=== PATIENT | female | born 1990 | race Caucasian/White ===

== ENCOUNTER → 2016-11-24 | Outpatient (CLI) | payer BC, OTHER ==
[~2016-11-24] MED LIST: YAZ
--- NOTE | 2016-11-24 17:15 | Diagnostic Imaging Report ---
OB ultrasound. INDICATION: survey and check cervical length. FINDINGS: The heart rate is 147 beats per minutes. The placenta is anterior. There is no placenta previa. The cervix is 5.8 cm in length and is closed. The posterior fossa appears unremarkable. The lateral ventricles are normal in size. The stomach and four-chamber view appear normal. The urinary bladder appears unremarkable. The cord insertion appears normal. There is suggestion of two umbilical arteries compatible with three-vessel cord seen around the urinary bladder. The spine upper and mid levels appear unremarkable. The lower spine is not well seen. The growth parameters are: Biparietal diameter: 22 weeks 1 day. Head circumference: 21 weeks 5 days. Abdominal circumference: 22 weeks 4 days. Femur length: 21 weeks 6 days. These average at: 22 weeks 1 day. This compares to a gestational age of 21 weeks and 2 days based on GEORGE provided by referring doctor of 04/04/2017. IMPRESSION: Follow-up study to reevaluate the lower spine not well seen on this exam. Dictated by: Dictated on workstation # [id number]
== END ==
LOC: RAD 11:45
PROVIDERS: ATTEND Obstetrics & Gynecology
DX: Z34.92 Encounter for supervision of normal pregnancy, unspecified, second trimester (principal)
CPT/HCPCS: 76805

== ENCOUNTER → 2017-01-19 | Outpatient (CLI) | payer BC ==
--- NOTE | 2017-01-19 18:43 | Diagnostic Imaging Report ---
EXAMINATION: OB ultrasound. INDICATION: Lower spine was not seen on survey. TECHNIQUE: Multiple real-time grayscale images were obtained over the gravid uterus. COMPARISON: 11/24/16. FINDINGS: heart rate is 146 beats per minute. The placenta is anterior. No placenta previa. The head position is cephalic. The spine is better visualized on the current exam with no underlying abnormality. The YAW is 14.8 cm. Biometrical measurements are as follows: Biparietal 7.9 cm, age 31 weeks 5 days, at the 94th percentile. Head circumference 29.4 cm, age 32 weeks 4 days, at the 95 percentile. Abdominal circumference 27 cm, age 31 weeks 1 days, at 90 percentile. Femur length 5.98 cm, age 31 weeks 1 days, at 84 percentile. Sonographic estimate age: 31 weeks 5 days. This compares to current gestational age of 29 weeks and 2 days based on assigned GEORGE of 04/04/17. Sonographic estimated date of delivery: 03/18/2017. Estimated Weight: 1739 gm (+/- 254 gm). LMP percentile: 96%. heart rate: 146 beats per minute. number: 1 of 1. IMPRESSION: Completed survey. measurements are at the upper limits of normal. Dictated by: Dictated on workstation # [id number]
== END ==
LOC: RAD 13:43
PROVIDERS: ATTEND Obstetrics & Gynecology
DX: Z36 Encounter for antenatal screening of mother (principal); Z3A.31 31 weeks gestation of pregnancy
CPT/HCPCS: 76816

== ENCOUNTER → 2017-02-10 | Outpatient (CLI) | payer BC ==
--- NOTE | 2017-02-10 12:42 | Diagnostic Imaging Report ---
INDICATION: Followup growth and YAW. TECHNIQUE: Multiple Real-time grayscale images were obtained over the gravid uterus. COMPARISON: 01/19/2017. FINDINGS: The heart rate is 147 BPM. The placenta is anterior. No placenta previa. The YAW is 8.4 cm. The position is cephalic. Biometrical measurements are as follows: Biparietal 8.6 cm, age 34 weeks 4 days, at 92nd percentile. Head circumference 32.3 cm, age 36 weeks 4 days, at 97th percentile. Abdominal circumference 30.3 cm, age 34 weeks 2 days, at 92nd percentile. Femur length 6.8 cm, age 35 weeks 1 days, at 94th percentile. Sonographic estimate age: 35 weeks 1 days. This compares to a gestational age of 32 weeks and 3 days based on the assigned GEORGE of 04/04/2017. Sonographic estimated date of delivery: 04/04/17. Estimated Weight: 2501 gm (+/- 365 gm). LMP percentile: 96%. heart rate: 147 beats per minute. number: 1 of 1. IMPRESSION: Live intrauterine . The measurements are relatively large, in the 90th percentiles, similar to 01/19/2017. Dictated by: Dictated on workstation # [id number]
== END ==
LOC: RAD 09:56
PROVIDERS: ATTEND Obstetrics & Gynecology
DX: Z36 Encounter for antenatal screening of mother (principal); Z3A.35 35 weeks gestation of pregnancy
CPT/HCPCS: 76816

== ENCOUNTER → 2017-03-08 | Outpatient (CLI) | payer BC ==
--- NOTE | 2017-03-08 15:57 | Diagnostic Imaging Report ---
INDICATION: Followup growth. TECHNIQUE: Multiple real-time grayscale images were obtained over the gravid uterus. COMPARISON: 11/24/16, 01/19/2017, 02/10/2017. FINDINGS: The previous exam of 02/10/2017 noted a single live fetus of approximately 35 weeks 1 day gestation +/-3 weeks. The estimated weight was in the 96th percentile. On this exam, the fetus is again identified. The fetus is cephalic in presentation with a heart rate of 155 BPM recorded. There were no obvious abnormalities identified. By the previous exam, the estimated gestational age should be 36 weeks 1 day +/-1 week. Today's growth measurements average 39 weeks 1 day. The head circumference and the abdominal circumference are in the greater than 98th percentile range. The placenta is anterior and there is no previa. The amniotic fluid index is 8.8 (normal 8.2 cm). IMPRESSION: 1. There is a single live fetus of approximately 36 weeks 1 day gestation +/-1 week. The EDC remains 04/04/2017. 2. There were no abnormalities identified. 3. The growth parameters suggest that the fetus is at the upper-most limits of normal in size. Biometrical measurements are as follows: Biparietal 9.44 cm, age 38 weeks 4 days. Head circumference 35.10 cm, age 41 weeks 0 days. Abdominal circumference 34.66 cm, age 38 weeks 4 days. Femur length 7.50 cm, age 38 weeks 3 days. Sonographic estimate age: 39 weeks 1 days. Sonographic estimated date of delivery: 03-14-17. Estimated Weight: 3589 gm (+/- 524 gm). LMP percentile: 98%. heart rate: 155 beats per minute. number: 1 of 1. Dictated by: Dictated on workstation # [id number]
== END ==
LOC: RAD 14:48
PROVIDERS: ATTEND Obstetrics & Gynecology
DX: O36.63X0 Maternal care for excessive fetal growth, third trimester, not applicable or unspecified (principal); Z3A.36 36 weeks gestation of pregnancy
CPT/HCPCS: 76816

== ENCOUNTER → 2017-03-22 | Outpatient (CLI) | payer BC ==
[~2017-03-22] MED LIST changes: +ACET1TAB43 PO; +DOCU100C37 PO; +FERR-74 PO; +IBUP-1773 PO
--- NOTE | 2017-03-22 18:14 | Diagnostic Imaging Report ---
INDICATION: Large for gestational age. TECHNIQUE: Multiple real-time grayscale images were obtained over the gravid uterus. COMPARISON: 03/08/2017, 02/10/2017, 01/19/2017, and 11/24/2016. FINDINGS: The recent OB ultrasound exam performed on 03/08/2017 noted a single live fetus at approximately 36 weeks 1 day gestation +/-1 week. The growth parameters did suggest that the fetus was at the upper-most limits of normal in size. On this study, the fetus is again identified. The fetus remains in cephalic presentation. heart motion was noted and a rate of 132 BPM was recorded. There were no abnormalities noted. The growth parameters average 39 weeks 1 day +/-1 week. The estimated weight is in the 70th percentile. The amniotic fluid index is 8.4 as opposed to 8.8 on the prior exam (normal 8 to 22 cm). The placenta is anterior and there is no previa. IMPRESSION: 1. There is a single live fetus at approximately 38 weeks 1 day gestation +/-1 week. The EDC remains April 04, 2017. 2. There were no abnormalities noted. 3. The growth parameters are at the upper limits of normal. 4. The amniotic fluid index is at the low end of normal. Biometrical measurements are as follows: Biparietal 9.4 cm, age 38 weeks 3 days. Head circumference 34.2 cm, age 39 weeks 4 days. Abdominal circumference 35.3 cm, age 39 weeks 2 days. Femur length 7.7 cm, age 39 weeks 1 days. Sonographic estimate age: 39 weeks 1 days. Sonographic estimated date of delivery: 03/28/17. Estimated Weight: 3688 gm (+/- 539 gm). LMP percentile: 85%. heart rate: 132 beats per minute. number: 1 of 1. Dictated by: Dictated on workstation # [id number]
== END ==
LOC: RAD 13:50
PROVIDERS: ATTEND Obstetrics & Gynecology
DX: Z36 Encounter for antenatal screening of mother (principal); Z3A.38 38 weeks gestation of pregnancy
CPT/HCPCS: 76816

== ENCOUNTER 2017-03-25 21:25 | Inpatient (IN) | payer BC ==
[~2017-03-25] VITALS: Ht 167.6 cm; Wt 85.4 kg
[~2017-03-25 21:25] MED LIST changes: -ACET1TAB43 PO; -DOCU100C37 PO; -FERR-74 PO; -IBUP-1773 PO
[2017-03-25] MEDS ORDERED: D5 LR IV SOLUTION 1,000 ML IV ONE (21:48)
[2017-03-25 22:00] VITALS: BP 128/79
[2017-03-25] MEDS ORDERED: D5 LR IV SOLUTION 1,000 ML IV SCH (22:59)
[2017-03-25] MEDS ORDERED: SUFENTA 0.6MCG/ML BUPIVA 0.125 100 ML ONE (23:06)
--- OUTSIDE RECORDS SUMMARY | 2017-03-25 23:10 | XMS REPORT ---
Author Author THERESA GARCIA Organization [employer] Address Unknown Phone Unavailable Care Team Providers Care Relocation Coordinator Name Role Phone THERESA GARCIA CP Unavailable Allergies No Known Allergies Problems No Known Problems Medications No Known Medications Results No Known Results Summary Purpose [employer] Submission
[2017-03-25 23:16] LABS: BASOPHILS % (AUTO) 0 % (0-10); EOSINOPHILS % (AUTO) 0 % (0-10); LYMPHOCYTES # (AUTO) 1.7 X 10^3 (1.0-4.0); LYMPHOCYTES % (AUTO) 16 % (12-44); MEAN CORPUSCULAR HEMOGLOBIN 29 PG (25-34); MEAN CORPUSCULAR HGB CONC 33 G/DL (32-36); MEAN CORPUSCULAR VOLUME 87 FL (80-99); MEAN PLATELET VOLUME 11.6 FL (7.4-10.4); MONOCYTES # (AUTO) 0.8 X 10^3 (0.0-1.0); MONOCYTES % (AUTO) 7 % (0-12); NEUTROPHILS # (AUTO) 8.6 X 10^3 (1.8-7.8); NEUTROPHILS % (AUTO) 77 % (42-75); PLATELET COUNT 222 10^3/uL (130-400); RED BLOOD COUNT 4.15 10^6/uL (4.35-5.85); RED CELL DISTRIBUTION WIDTH 12.7 % (10.0-14.5); WHITE BLOOD COUNT 11.2 10^3/uL (4.3-11.0)
[2017-03-25 23:40] VITALS: BP 130/87
[2017-03-25] MEDS ORDERED: BUPIVACAINE 0.25% 30 ML (SENSORCAINE) VIAL ONE (23:42)
[2017-03-25 23:55] VITALS: BP 127/78
[2017-03-25 23:58] VITALS: BP 120/78
[2017-03-26] VITALS (67 sets, daily range): BP systolic 84–134; BP diastolic 51–82
[2017-03-26] MEDS: EPIDURAL (SUFENTA 0.6MCG/ML BUPIVA 0.125%) 100 ML BAG EPI SCH ×2 (00:05→10:06)
[2017-03-26] MEDS ORDERED: NALOXONE 0.4 MG/ML 1 ML (NARCAN) VIAL IV PRN (00:15)
[2017-03-26] MEDS ORDERED: ONDANSETRON 4 MG/2 ML (SDV) Z0FRAN IV PRN (00:15)
[2017-03-26] MEDS ORDERED: OXYTOCIN/NORMAL SALINE 500 ML IV ONE (05:13)
[2017-03-26] MEDS: OXYTOCIN/NORMAL SALINE 500 ML IV SCH ×4 (05:25→14:16)
[2017-03-26] MEDS ORDERED: CATHETER FLUSH 10 ML SYR IV SCH ×2 (06:00→14:00)
--- NOTE | 2017-03-26 09:54 | History & Physical-OB ---
OB - Chief Complaint & HPI Date/Time Date of Admission: Date of Admission: Mar 25, 2017 at 10:54 pm Time Seen by Provider: 09:00 Chief Complaint/History OB-Reason for Admission/Chief: Onset of Labor Hx : 1 Hx Para: 0 Expected Date of Delivery: Apr 04, 2017 Gestational Age in Weeks: 38 Admission Nurse Assessment Rev: Yes History of Labs A pos Antibody neg RI RPR NR HBsAg NR HIV NR GC neg GBS neg Allergies and Home Medications Allergies Coded Allergies: amoxicillin (Unverified Allergy, Mild, 05/13/09) Home Medications [Karen] , (Reported) OB - History Hx of Present Care: Yes Ultrasounds: Normal mid trimester US Obstetrical Complications: None Medical Complications: None Obstetrical History Hx : 1 Hx Para: 0 Delivery History Adverse Rxn to Tranfusion: No Patient Past Medical History none Social History/Family History HIV/AIDS: No Recent Infectious Disease Expo: No Sexually Transmitted Disease: No Alcohol Use: Denies Use Recreational Drug Use: No Immunizations Hepatitis A: Yes Hepatitis B: Yes OB - Admission Exam Physical Exam Date Seen by Provider: Mar 26, 2017 Time Seen by Provider: 09:15 Vitals: Vital Signs 03/26/17 03/26/17 03/26/17 05:45 06:45 07:00 Temp 98.2 Pulse 67 Resp 18 B/P (MAP) 117/65 Pulse Ox 98 O2 Delivery Room Air HEENT: NCAT Heart: Rhythm Normal Lungs: Clear Abdomen: Gravid Extremities: Normal Reflexes: Normal Cervical Dilatation: 5cm Effacement: 75% Station: -1 Membranes: Intact Heart Rate: 130's Accelerations: Accelerations Present Decelerations: No Decelerations Short Term Variability: Present Portrait Studio Photographer Variability: Average (6-25) Contractions on Admission: < 5 Minutes Apart Intensity: Firm Labs Laboratory Tests Test 03/25/17 23:05 Range/Units White Blood Count 11.2 H 4.3-11.0 10^3/uL Red Blood Count 4.15 L 4.35-5.85 10^6/uL Hemoglobin 12.1 11.5-16.0 G/DL Hematocrit 36 35-52 % Mean Corpuscular Volume 87 80-99 FL Mean Corpuscular Hemoglobin 29 25-34 PG Mean Corpuscular Hemoglobin Concent 33 32-36 G/DL Red Cell Distribution Width 12.7 10.0-14.5 % Platelet Count 222 130-400 10^3/uL Mean Platelet Volume 11.6 H 7.4-10.4 FL Neutrophils (%) (Auto) 77 H 42-75 % Lymphocytes (%) (Auto) 16 12-44 % Monocytes (%) (Auto) 7 0-12 % Eosinophils (%) (Auto) 0 0-10 % Basophils (%) (Auto) 0 0-10 % Neutrophils # (Auto) 8.6 H 1.8-7.8 X 10^3 Lymphocytes # (Auto) 1.7 1.0-4.0 X 10^3 Monocytes # (Auto) 0.8 0.0-1.0 X 10^3 Eosinophils # (Auto) 0.0 0.0-0.3 10^3/uL Basophils # (Auto) 0.0 0.0-0.1 10^3/uL OB - Assessment/Plan/Diagnosis Assessment Assessment: active labor Plan Plan: Expectant Management Discharge Diagnosis Diagnosis: 26 yo @ 39 weeks Active labor GBS neg ROSANGELA HEATON DO Mar 26, 2017 9:54 am
[2017-03-26] MEDS ORDERED: LIDOCAINE/EPI 2% 1:200,00 (XYLOCAINE) 10 ML VIAL ONE (12:22)
[2017-03-26] MEDS ORDERED: MINERAL OIL CONCENTRATE 99.9% 15 ML UDC ONE (12:22)
[2017-03-26] MEDS ORDERED: MEASLES,MUMPS,RUBELLA 1 EA INJ SQ ONE (14:00)
[2017-03-26] MEDS ORDERED: APAP 300 MG/CODEINE 30 MG (TYLENOL #3) TAB PO PRN (14:00)
[2017-03-26] MEDS ORDERED: TETANUS,DIPTH,PERTUSS P/F (BOOSTRIX) 0.5 ML VIAL IM ONE (14:00)
[2017-03-26] MEDS ORDERED: DIBUCAINE (NUPERCAINAL) 1% OINT 30 GM TOP PRN (14:00)
[2017-03-26] MEDS ORDERED: BENZOCAINE/MENTHOL (DERMOPLAST) 56 ML CAN TP PRN (14:00)
[2017-03-26] MEDS ORDERED: WITCH HAZEL(TUCKS) 40 EA JAR TOP PRN (14:00)
--- NOTE | 2017-03-26 14:01 | OB Labor & Delivery Record ---
L&D History Date of Service Date of Service: Mar 26, 2017 History Expected Date of Delivery: Apr 04, 2017 Gestational Age in Weeks: 38 Hx : 1 Hx Para: 0 Complications Events: Routine care Operative Indications (Cesarea: N/A-Vaginal Delivery Intrapartal Events: None L&D Stage1 Stage One Onset of Labor - Date: Mar 26, 2017 Monitors and Tracing Monitor Mode: External Heart Rate: 140 Station: -2 Short Term Variability: Present Presentation: Vertex Vital Signs VS - Last 72 Hours, by Label 03/25/17 03/25/17 03/25/17 03/25/17 22:00 23:40 23:55 23:58 Temp 98.4 Pulse 83 98 86 93 Resp 18 18 18 18 B/P (MAP) 128/79 130/87 127/78 120/78 Pulse Ox 98 98 O2 Delivery Room Air Room Air Room Air Room Air 03/26/17 03/26/17 03/26/17 03/26/17 00:01 00:04 00:07 00:10 Pulse 96 86 87 106 Resp 18 18 18 18 B/P (MAP) 125/78 117/67 116/67 111/58 Pulse Ox 92 100 98 98 O2 Delivery Room Air Room Air Room Air Room Air 03/26/17 03/26/17 03/26/17 03/26/17 00:16 00:19 00:23 00:30 Pulse 114 92 88 88 Resp 18 18 18 18 B/P (MAP) 86/51 105/58 106/59 110/58 Pulse Ox 98 98 99 99 O2 Delivery Room Air Room Air Room Air Room Air 03/26/17 03/26/17 03/26/17 03/26/17 00:33 00:39 00:45 01:00 Pulse 86 92 96 103 Resp 18 18 18 18 B/P (MAP) 107/55 106/57 129/58 103/59 Pulse Ox 99 100 100 100 O2 Delivery Room Air Room Air Room Air Room Air 03/26/17 03/26/17 03/26/17 03/26/17 01:15 01:30 01:45 02:00 Pulse 75 78 101 78 Resp 18 18 18 18 B/P (MAP) 98/56 101/55 100/63 101/55 Pulse Ox 97 97 99 97 O2 Delivery Room Air Room Air Room Air Room Air 03/26/17 03/26/17 03/26/17 03/26/17 02:15 02:30 02:45 03:00 Temp 97.8 Pulse 100 73 69 68 Resp 18 18 18 18 B/P (MAP) 102/65 101/59 94/51 91/53 Pulse Ox 99 99 97 97 O2 Delivery Room Air Room Air Room Air Room Air 03/26/17 03/26/17 03/26/17 03/26/17 03:15 03:30 03:45 04:00 Pulse 79 86 77 76 Resp 18 18 18 18 B/P (MAP) 84/51 105/59 97/56 95/51 Pulse Ox 97 97 97 97 O2 Delivery Room Air Room Air Room Air Room Air 03/26/17 03/26/17 03/26/17 03/26/17 04:15 04:30 04:45 05:00 Pulse 70 71 67 68 Resp 18 18 18 18 B/P (MAP) 86/54 96/52 95/54 91/55 Pulse Ox 97 97 97 97 O2 Delivery Room Air Room Air Room Air Room Air 03/26/17 03/26/17 03/26/17 03/26/17 05:15 05:30 05:45 06:00 Temp 98.2 Pulse 85 96 74 74 Resp 18 18 18 18 B/P (MAP) 87/51 91/57 117/75 116/74 Pulse Ox 97 98 99 98 O2 Delivery Room Air Room Air Room Air Room Air 03/26/17 03/26/17 03/26/17 03/26/17 06:15 06:30 06:45 07:00 Pulse 71 87 67 Resp 18 18 18 18 B/P (MAP) 118/73 110/76 117/65 Pulse Ox 98 98 98 O2 Delivery Room Air Room Air Room Air Room Air Rupture of Membranes Spontaneous Ruture of Membrane: Yes Amniotic Membrane Fluid Desc.: Clear Vaginal Bleeding Description: Normal Show Induction/Anesthesia Epidural Cath Placement - Time: 2358 L&D Stage2 Stage Two Stage II Date: Mar 26, 2017 Monitors and Tracing Monitor Mode: External Heart Rate: 140 Monitor Decelerations: Variable Mobile Home Lot Utility Worker Variability: Minimal (3-5) Short Term Variability: Present Position: Right Occiput Anterior Presentation: Vertex Cord Descript/Complications Cord Vessel Description: 3 Vessels Complications compound presentation over anterior shoulder, hand had to be reduced to allow for delivery of anterior shoulder, once this was done there was no trouble. Delivery Type Infant Delivery Method: Spontaneous Vaginal Anterior Shoulder: Right Episiotomy/Perineal Laceration Laceraction(s)/Extensions: Yes Episiotomy Description: Right Mediolateral Degree (describe repair) 3-0 and 2-0 vicryl suture used to repair RML Condition of Infant Delivery 1 minute Comment: 8 5 minute Comment: 9 Condition of Infant Condition of Infant: Living Exam: No Observed Abnormalities Live female infant weight 8lbs 5 oz, APGARs 8/9 Resuscitation Resuscitation: N/A - Spontaneous Resp L&D Stage3 Stage Three Stage III Date: Mar 26, 2017 Pictocin Pitocin Administration mu/min: 4 Pitocin ml/hr: 4 Pitocin Administration Comment: 30 mu Wide open after delivery of placenta Placenta Delivery Placenta Delivery: Spontaneous Delivery Summary Summary blood loss >1000ml: No Vaginal blood loss >500ml: No 350 mL Attending at delivery: Rosangela Heaton DO Condition of Delivery Examined: Cervix Examined, Uterus Explored Post Hemorrhage: No Condition of Mother stable Condition of (s) stable ROSANGELA HEATON DO Mar 26, 2017 14:01
[2017-03-26] MEDS ORDERED: DOCU100C37 PO (14:03)
[2017-03-26] MEDS ORDERED: ACET1TAB43 PO (14:03)
[2017-03-26] MEDS ORDERED: FERR-74 PO (14:03)
[2017-03-26] MEDS ORDERED: IBUP-1773 PO (14:03)
--- NOTE | 2017-03-26 14:04 | Discharge Inst-Women's Service ---
Discharge Inst-Women's Serv Depart Medication/Instructions New, Converted or Re-Newed RX: RX on Chart Consults/Follow Up Additional Follow Up: Yes Orders/Referrals Dr. Portillo in 6 weeks Activity Activity: Activity as Tolerated Driving Instructions: No Driving for 1 Week NO SMOKING: NO SMOKING Nothing Inside Vagina: No Douching, No [place], No Tampons Diet Discharge Diet: No Restrictions Symptoms to Report to : Bleeding Excessive, Pain Increased, Fever Over 101 Degrees F, Vaginal Bleeding Increase, Questions/Concerns For Any Problems or Questions: Contact Your Physician Skin/Wound Care Bathing Instructions: Shower (x 2 weeks or sitz baths) ROSANGELA HEATON DO Mar 26, 2017 14:04
[2017-03-26] MEDS: IBUPROFEN 600 MG (MOTRIN) TAB PO SCH ×2 (14:51→20:48)
[2017-03-26] MEDS: DOCUSATE SODIUM 100 MG (COLACE) CAP PO SCH (20:48)
[2017-03-27 00:40] VITALS: BP 106/67
[2017-03-27 03:55] VITALS: BP 101/64
[2017-03-27] MEDS: IBUPROFEN 600 MG (MOTRIN) TAB PO SCH ×3 (03:55→16:30)
[2017-03-27 05:58] LABS: BASOPHILS % (AUTO) 0 % (0-10); EOSINOPHILS # (AUTO) 0.1 10^3/uL (0.0-0.3); EOSINOPHILS % (AUTO) 1 % (0-10); LYMPHOCYTES # (AUTO) 2.1 X 10^3 (1.0-4.0); LYMPHOCYTES % (AUTO) 21 % (12-44); MEAN CORPUSCULAR HEMOGLOBIN 29 PG (25-34); MEAN CORPUSCULAR HGB CONC 33 G/DL (32-36); MEAN CORPUSCULAR VOLUME 89 FL (80-99); MEAN PLATELET VOLUME 11.5 FL (7.4-10.4); MONOCYTES % (AUTO) 10 % (0-12); NEUTROPHILS # (AUTO) 6.6 X 10^3 (1.8-7.8); NEUTROPHILS % (AUTO) 68 % (42-75); PLATELET COUNT 164 10^3/uL (130-400); RED BLOOD COUNT 3.63 10^6/uL (4.35-5.85); RED CELL DISTRIBUTION WIDTH 12.9 % (10.0-14.5); WHITE BLOOD COUNT 9.7 10^3/uL (4.3-11.0)
[2017-03-27] MEDS ORDERED: PRENATAL VITAMIN 1 EA TAB PO SCH (07:00)
[2017-03-27 08:40] VITALS: BP 108/68
[2017-03-27] MEDS: DOCUSATE SODIUM 100 MG (COLACE) CAP PO SCH (08:40)
[2017-03-27] MEDS ORDERED: FERROUS SULF 325 MG (IRON) TAB PO SCH (09:00)
[2017-03-27] MEDS ORDERED: DOCUSATE CALCIUM 240 MG (SURFAK) CAP PO SCH (09:00)
--- NOTE | 2017-03-27 09:09 | Anesthesia-Regional Post-Op ---
Regional Patient Condition Mental Status: Alert, Oriented x3 Circulation: Same as Pre-Op Headache: Absent Sensation: Full Recovery Motor Block: Absent Post Op Complications Complications None Follow Up Care/Instructions Patient Instructions None needed. Anesthesia/Patient Condition Patient is doing well, no complaints, stable vital signs, no apparent adverse anesthesia problems. No complications reported per nursing. ESTER MILLARD CRNA Mar 27, 2017 09:08
--- NOTE | 2017-03-27 09:26 | Progress Note-Standard ---
Standard Progress Note Progress Notes/Assess & Plan Date Seen by Provider: Mar 27, 2017 Time Seen by Provider: 09:30 Progress/Assessment & Plan Patient doing well PPD 1 NVD. Reports good pain control. Ambulating and voiding freely. Lochia light Vital Sign - Last 24 Hours 03/26/17 03/26/17 03/26/17 03/26/17 09:30 09:45 10:00 10:29 Temp 98.7 Pulse 84 74 71 74 Resp 18 18 18 18 B/P (MAP) 126/82 130/68 116/75 106/66 Pulse Ox 98 97 97 97 O2 Delivery Room Air Room Air Room Air Room Air 03/26/17 03/26/17 03/26/17 03/26/17 10:45 10:59 11:15 11:30 Pulse 65 82 75 82 Resp 18 18 18 18 B/P (MAP) 111/64 111/67 116/69 123/72 O2 Delivery Room Air Room Air Room Air Room Air 03/26/17 03/26/17 03/26/17 03/26/17 11:45 12:00 12:15 12:30 Temp 98.1 98.4 Pulse 77 77 82 92 Resp 18 18 18 18 B/P (MAP) 96/55 121/76 117/75 119/70 O2 Delivery Room Air Room Air Room Air Room Air 03/26/17 03/26/17 03/26/17 03/26/17 12:45 13:02 13:16 13:30 Pulse 100 100 121 126 Resp 18 18 18 18 B/P (MAP) 119/72 134/60 120/71 128/67 O2 Delivery Room Air Room Air Room Air Room Air 03/26/17 03/26/17 03/26/17 03/26/17 13:43 13:58 14:13 14:27 Temp 98.0 Pulse 96 100 92 97 Resp 18 18 18 18 B/P (MAP) 111/57 119/57 119/58 123/64 O2 Delivery Room Air Room Air Room Air Room Air 03/26/17 03/26/17 03/26/17 03/27/17 14:59 15:29 20:00 00:40 Temp 98.1 97.8 Pulse 94 84 87 78 Resp 18 18 18 18 B/P (MAP) 127/60 119/70 107/61 106/67 Pulse Ox 97 97 O2 Delivery Room Air Room Air Room Air Room Air 03/27/17 03:55 Temp 97.9 Pulse 70 Resp 18 B/P (MAP) 101/64 Pulse Ox 98 O2 Delivery Room Air Uterine fundus firm and palpated below umbilicus Laboratory Tests Test 03/27/17 05:49 Range/Units White Blood Count 9.7 4.3-11.0 10^3/uL Red Blood Count 3.63 L 4.35-5.85 10^6/uL Hemoglobin 10.6 L 11.5-16.0 G/DL Hematocrit 32 L 35-52 % Mean Corpuscular Volume 89 80-99 FL Mean Corpuscular Hemoglobin 29 25-34 PG Mean Corpuscular Hemoglobin Concent 33 32-36 G/DL Red Cell Distribution Width 12.9 10.0-14.5 % Platelet Count 164 130-400 10^3/uL Mean Platelet Volume 11.5 H 7.4-10.4 FL Neutrophils (%) (Auto) 68 42-75 % Lymphocytes (%) (Auto) 21 12-44 % Monocytes (%) (Auto) 10 0-12 % Eosinophils (%) (Auto) 1 0-10 % Basophils (%) (Auto) 0 0-10 % Neutrophils # (Auto) 6.6 1.8-7.8 X 10^3 Lymphocytes # (Auto) 2.1 1.0-4.0 X 10^3 Monocytes # (Auto) 1.0 0.0-1.0 X 10^3 Eosinophils # (Auto) 0.1 0.0-0.3 10^3/uL Basophils # (Auto) 0.0 0.0-0.1 10^3/uL Diagnosis: PPD 1 NVD Acute blood loss anemia P: Continue routine pp care replace iron anticipate dc later today pending release or tomorrow morning. ROSANGELA HEATON DO Mar 27, 2017 9:26 am
[2017-03-27 16:30] VITALS: BP 116/74
== END 2017-03-27 16:50 | disposition home or self-care (01) | DRG 775 ==
LOC: WSo 21:25 → LDRP 21:25 → WSo 22:54 → LDRP 22:54
PROVIDERS: ADMIT Obstetrics & Gynecology; ATTEND Obstetrics & Gynecology
PROC: 10E0XZZ Delivery of Products of Conception, External Approach (ICD-10-PCS; principal; 2017-03-26)
PROC: 0W8NXZZ Division of Female Perineum, External Approach (ICD-10-PCS; 2017-03-26)
DX: O32.6XX0 Maternal care for compound presentation, not applicable or unspecified (principal); O99.03 Anemia complicating the puerperium; D62 Acute posthemorrhagic anemia; Z3A.38 38 weeks gestation of pregnancy; Z37.0 Single live birth
CPT/HCPCS: 36415; 85025; 86850; 86900; 86901

== ENCOUNTER → 2020-04-25 | Outpatient (CLI) | payer OTHER ==
[~2020-04-25] MED LIST changes: +ACET1TAB43 PO; +DOCU100C37 PO; +FERR325T18 PO; +IBUP-1773 PO
== END | disposition home or self-care (01) ==
LOC: LAB 12:18
PROVIDERS: ATTEND Obstetrics & Gynecology
DX: O20.0 Threatened abortion (principal)
CPT/HCPCS: 36415; 84702; 84703

== ENCOUNTER → 2020-10-12 | Outpatient (CLI) | payer OTHER ==
--- NOTE | 2020-10-13 09:43 | Diagnostic Imaging Report ---
INDICATION: anatomy survey TECHNIQUE: Multiple real-time grayscale images were obtained over the gravid uterus. COMPARISON: None FINDINGS: The cervix is closed measuring approximately 6 cm in length. Fetus is in transverse lie. Placenta is posterior and fundal in location and there are no features of previa. The amount of amniotic fluid is normal with an YAW of 13.9 cm. Maternal adnexa are imaged and show no concerning abnormality. anatomy survey was performed and the following structures are visualized and normal: Stomach, spine, three-vessel cord, urinary bladder, umbilical cord insertion, diaphragm, four-chamber heart, right ventricular outflow tract, left ventricular outflow tract, lips/nose, intracranial contents, profile and extremities. The bilateral renal pelves are dilated suggestive of hydronephrosis. Biometrical measurements are as follows: Biparietal 4.78 cm, age 20 weeks 4 days. Head circumference 18.74 cm, age 21 weeks 1 days. Abdominal circumference 15.77 cm, age 21 weeks 0 days. Femur length 3.40 cm, age 20 weeks 5 days. Sonographic estimate age: 20 weeks 6 days. Sonographic estimated date of delivery: 02/23/21. Estimated Weight: 379 gm (+/- 55 gm). LMP percentile: 67%. heart rate: 130 beats per minute. number: 1 of 1. IMPRESSION: 1. Single live intrauterine with a average ultrasound age of 20 weeks and 6 days. 2. anatomy survey is normal with exception of mild bilateral hydronephrosis. Consider followup intrauterine imaging to reassess if this persists. Dictated by: Dictated on workstation # [id number]
== END ==
LOC: RAD 15:00
PROVIDERS: ATTEND Obstetrics & Gynecology
DX: Z34.02 Encounter for supervision of normal first pregnancy, second trimester (principal); Z3A.20 20 weeks gestation of pregnancy
CPT/HCPCS: 76805

== ENCOUNTER 2021-02-17 06:00 | Inpatient (IN) | payer OTHER ==
[2021-02-17] VITALS (29 sets, daily range): BP systolic 0–143; BP diastolic 0–75
[~2021-02-17] VITALS: Ht 170.2 cm; Wt 91.3 kg
[2021-02-17] MEDS ORDERED: fentaNYL 2 mcg/ml BUPIVA 0.125 100 ML ONE (06:30)
[2021-02-17] MEDS ORDERED: D5 LR IV SOLUTION 1,000 ML IV ONE (06:32)
[2021-02-17 06:34] LABS: BASOPHILS % (AUTO) 0 % (0-10); EOSINOPHILS % (AUTO) 0 % (0-10); HEMATOCRIT 38 % (35-52); HEMOGLOBIN 12.5 g/dL (11.5-16.0); LYMPHOCYTES # (AUTO) 1.7 10^3/uL (1.0-4.0); LYMPHOCYTES % (AUTO) 20 % (12-44); MEAN CORPUSCULAR HEMOGLOBIN 29 pg (25-34); MEAN CORPUSCULAR HGB CONC 33 g/dL (32-36); MEAN CORPUSCULAR VOLUME 88 fL (80-99); MEAN PLATELET VOLUME 11.9 fL (9.0-12.2); MONOCYTES # (AUTO) 0.6 10^3/uL (0.0-1.0); MONOCYTES % (AUTO) 7 % (0-12); NEUTROPHILS # (AUTO) 5.8 10^3/uL (1.8-7.8); NEUTROPHILS % (AUTO) 72 % (42-75); PLATELET COUNT 181 10^3/uL (130-400); WHITE BLOOD COUNT 8.1 10^3/uL (4.3-11.0)
[2021-02-17] MEDS: D5 LR IV SOLUTION 1,000 ML IV SCH ×2 (06:40→23:46)
[2021-02-17] MEDS ORDERED: fentaNYL INJ 100 MCG/2 ML AMP ONE (06:51)
[2021-02-17] MEDS ORDERED: BUPIVACAINE 0.25% 30 ML (SENSORCAINE) VIAL ONE (06:51)
[2021-02-17] MEDS ORDERED: NALOXONE 0.4 MG/ML 1 ML (NARCAN) VIAL IV PRN ×2 (07:45)
[2021-02-17] MEDS ORDERED: EPIDURAL (fentaNYL 2 MCG/ML BUPIVA 0.125%)100 ML BAG EPI PRN (07:45)
[2021-02-17] MEDS ORDERED: LACTATED RINGERS 1,000 ML IV SCH (07:45)
[2021-02-17] MEDS ORDERED: diphenhydrAMINE 50 MG/ML INJ (BENADRYL) IV PRN (07:45)
[2021-02-17] MEDS ORDERED: ONDANSETRON 4 MG/2 ML (SDV) Z0FRAN IV PRN (07:45)
[2021-02-17] MEDS ORDERED: METOCLOPRAMIDE INJ 10 MG/2 ML (REGLAN) IV PRN (07:45)
[2021-02-17] MEDS ORDERED: fentaNYL 2 mcg/ml BUPIVA 0.125 100 ML EPI PRN (08:00)
[2021-02-17] MEDS ORDERED: LIDOCAINE/EPI 2% 1:200,00 (XYLOCAINE) 20 ML VIAL ONE (08:09)
[2021-02-17] MEDS ORDERED: OXYTOCIN PRE-MIX DRIP 500 ML IV ONE ×2 (08:10→09:41)
--- NOTE | 2021-02-17 08:23 | History & Physical-OB ---
OB - Chief Complaint & HPI Date/Time Date of Admission: Date of Admission: Feb 17, 2021 at 06:29 Date seen by a Provider: Feb 17, 2021 Time Seen by a Provider: 08:00 Chief Complaint/History OB-Reason for Admission/Chief: Onset of Labor Hx : 2 Hx Para: 1 Expected Date of Delivery: Feb 26, 2021 Gestational Age in Weeks: 38 Gestational Age in Days: 5 Admission Nurse Assessment Rev: Yes History of Labs A pos Antibody neg GBS neg Allergies and Home Medications Allergies Coded Allergies: amoxicillin (Unverified Allergy, Mild, 05/13/09) Home Medications Acetaminophen with Codeine 1 Each Tablet, 1-2 TAB PO Q4H PRN for PAIN-MODERATE Prescribed by: ROSANGELA HEATON on 03/26/171402 Docusate Sodium 100 Mg Capsule, 100 MG PO BID Prescribed by: ROSANGELA HEATON on 03/26/171402 Ferrous Sulfate 325 Mg Tablet, 325 MG PO DAILY Prescribed by: ROSANGELA HEATON on 03/26/171402 Ibuprofen 600 Mg Tablet, 600 MG PO Q6H Prescribed by: ROSANGELA HEATON on 03/26/171402 Patient Home Medication List Home Medication List Reviewed: Yes OB - History Hx of Present Care: Yes Ultrasounds: Abnormal US findings (bilateral renal pyelectasis, followed with MFM and stable, peds to follow up ) Obstetrical Complications: None Medical Complications: None Obstetrical History Hx : 2 Hx Para: 1 Delivery History Adverse Rxn to Tranfusion: No Patient Past Medical History none Social History/Family History Alcohol Use: Denies Use Recreational Drug Use: No 2nd Hand Smoke Exposure: No Immunizations Hepatitis A: Yes Hepatitis B: Yes OB - Admission Exam Physical Exam Vitals: Vital Signs 02/17/21 02/17/21 02/17/21 02/17/21 06:14 06:45 07:00 07:08 Temp 36.2 Pulse 94 Resp 18 B/P (MAP) 120/73 (89) Pulse Ox 98 O2 Delivery Room Air HEENT: NCAT Heart: Rhythm Normal Lungs: Clear Abdomen: Gravid Extremities: Normal Reflexes: Normal Cervical Dilatation: 7cm Effacement: 75% Station: -1 Membranes: Intact Heart Rate: 130's Accelerations: Accelerations Present Decelerations: No Decelerations Short Term Variability: Present Care Home Variability: Average (6-25) Contractions on Admission: < 5 Minutes Apart Intensity: Firm Labs Laboratory Tests Test 02/17/21 06:25 Range/Units White Blood Count 8.1 4.3-11.0 10^3/uL Red Blood Count 4.26 3.80-5.11 10^6/uL Hemoglobin 12.5 11.5-16.0 g/dL Hematocrit 38 35-52 % Mean Corpuscular Volume 88 80-99 fL Mean Corpuscular Hemoglobin 29 25-34 pg Mean Corpuscular Hemoglobin Concent 33 32-36 g/dL Red Cell Distribution Width 13.2 10.0-14.5 % Platelet Count 181 130-400 10^3/uL Mean Platelet Volume 11.9 9.0-12.2 fL Immature Granulocyte % (Auto) 0 % Neutrophils (%) (Auto) 72 42-75 % Lymphocytes (%) (Auto) 20 12-44 % Monocytes (%) (Auto) 7 0-12 % Eosinophils (%) (Auto) 0 0-10 % Basophils (%) (Auto) 0 0-10 % Neutrophils # (Auto) 5.8 1.8-7.8 10^3/uL Lymphocytes # (Auto) 1.7 1.0-4.0 10^3/uL Monocytes # (Auto) 0.6 0.0-1.0 10^3/uL Eosinophils # (Auto) 0.0 0.0-0.3 10^3/uL Basophils # (Auto) 0.0 0.0-0.1 10^3/uL Immature Granulocyte # (Auto) 0.0 0.0-0.1 10^3/uL OB - Assessment/Plan/Diagnosis Assessment Assessment: active labor Admission Dx 30 y o @ 38 weeks Active labor GBS neg renal pyelectasis- follow up . Admission Status: Inpatient Order (span 2 midnights) Reason for Inpatient Admission: Active labor Plan Plan: Expectant Management ROSANGELA HEATON DO Feb 17, 2021 08:23
[2021-02-17] MEDS: OXYTOCIN PRE-MIX DRIP 500 ML IV SCH ×2 (09:06→09:44)
--- NOTE | 2021-02-17 10:07 | OB Labor & Delivery Record ---
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 Variability: Moderate (11-25) Short Term Variability: Present Presentation: Vertex Vital Signs VS - Last 72 Hours, by Label 02/17/21 02/17/21 02/17/21 02/17/21 06:14 06:45 07:00 07:05 Temp 37.0 36.2 Pulse 0 91 85 85 Resp 18 18 18 B/P (MAP) 107/61 (76) 125/75 (92) 120/69 (86) Pulse Ox 98 98 O2 Delivery Room Air 02/17/21 07:08 Pulse 94 B/P (MAP) 120/73 (89) Pulse Ox 98 Rupture of Membranes Spontaneous Ruture of Membrane: No Amniotic Membrane Rupture Time: 07:55 Amniotic Membrane Fluid Desc.: Clear Vaginal Bleeding Description: Normal Show Induction/Anesthesia Epidural Cath Placement - Time: 0703 Progress/Notes Patient presented in active labor 7 cm dialated. We were able to get an epidural in time, but shorlty after placement she was rechecked and found to be complete and +1 station. Her labor was nor augmented other than AROM performed when she was complete. L&D Stage2 Stage Two Stage II Date: Feb 17, 2021 Monitors and Tracing Monitor Mode: External Heart Rate: 120 Monitor Accelerations: Uniform Monitor Decelerations: Variable Short Term Variability: Present Position: Right Occiput Anterior Presentation: Vertex Cord Descript/Complications Cord Vessel Description: 3 Vessels Delivery Type Infant Delivery Method: Spontaneous Vaginal Anterior Shoulder: Right Episiotomy/Perineal Laceration Laceraction(s)/Extensions: Yes Episiotomy Description: Perineal Extension/lac, 2nd degree Degree (describe repair) 2nd degree perineal laceration repaired using 3-0 rapide suture in usual fashion. Condition of Infant Delivery 1 minute Comment: 9 5 minute Comment: 9 Notes Live male infant weight 9lbs 6 oz Condition of Condition of : Living Exam: No Observed Abnormalities Resuscitation Resuscitation: N/A - Spontaneous Resp L&D Stage3 Stage Three Stage III Date: Feb 17, 2021 Pictocin Pitocin Administration Comment: 30 mu wide open after delivery of placenta Placenta Delivery Placenta Delivery: Spontaneous Delivery Summary Summary Estimated blood loss (mL): 300 Attending at delivery: Rosangela Heaton DO Condition of Delivery Examined: Cervix Examined, Uterus Explored Post Hemorrhage: No Condition of Mother stable Condition of Infant (s) stable ROSANGELA HEATON DO Feb 17, 2021 10:07 am
[2021-02-17] MEDS ORDERED: BENZOCAINE/MENTHOL (DERMOPLAST) 56 ML CAN TP PRN (10:15)
[2021-02-17] MEDS ORDERED: DIBUCAINE 1% OINTMENT 30 GM TUBE TOP PRN (10:15)
[2021-02-17] MEDS ORDERED: WITCH HAZEL(TUCKS) 40 EA JAR TOP PRN (10:15)
[2021-02-17] MEDS ORDERED: TETANUS,DIPTH,PERTUSS P/F (BOOSTRIX) 0.5 ML VIAL IM ONE (10:15)
[2021-02-17] MEDS ORDERED: HYDROcodone/APAP 5 MG/325 MG (LORTAB) TAB PO PRN (10:15)
[2021-02-17] MEDS ORDERED: MEASLES,MUMPS,RUBELLA 1 EA INJ SQ ONE (10:15)
[2021-02-17] MEDS: IBUPROFEN 600 MG (MOTRIN) TAB PO SCH ×3 (10:53→23:53)
[2021-02-17] MEDS ORDERED: CATHETER FLUSH 10 ML SYR IV SCH ×2 (14:00)
[2021-02-17] MEDS: DOCUSATE SODIUM 100 MG (COLACE) CAP PO SCH (20:35)
[2021-02-18 03:35] VITALS: BP 101/60
[2021-02-18 05:06] LABS: BASOPHILS % (AUTO) 0 % (0-10); EOSINOPHILS # (AUTO) 0.1 10^3/uL (0.0-0.3); EOSINOPHILS % (AUTO) 1 % (0-10); HEMATOCRIT 35 % (35-52); HEMOGLOBIN 11.5 g/dL (11.5-16.0); LYMPHOCYTES # (AUTO) 1.8 10^3/uL (1.0-4.0); LYMPHOCYTES % (AUTO) 20 % (12-44); MEAN CORPUSCULAR HEMOGLOBIN 29 pg (25-34); MEAN CORPUSCULAR HGB CONC 33 g/dL (32-36); MEAN CORPUSCULAR VOLUME 88 fL (80-99); MEAN PLATELET VOLUME 11.8 fL (9.0-12.2); MONOCYTES # (AUTO) 0.6 10^3/uL (0.0-1.0); MONOCYTES % (AUTO) 7 % (0-12); NEUTROPHILS # (AUTO) 6.5 10^3/uL (1.8-7.8); NEUTROPHILS % (AUTO) 72 % (42-75); PLATELET COUNT 168 10^3/uL (130-400)
[2021-02-18] MEDS: IBUPROFEN 600 MG (MOTRIN) TAB PO SCH (06:58)
[2021-02-18] MEDS ORDERED: PRENATAL VITAMIN 1 EA TAB PO SCH (07:00)
[2021-02-18] MEDS ORDERED: FERROUS SULF 325 MG (IRON) TAB PO SCH (07:00)
[2021-02-18] MEDS ORDERED: COVID-19 VACC,MRNA(MODERNA)/PF 100 MCG/0.5 ML VIAL IM ONE (08:00)
--- NOTE | 2021-02-18 08:02 | Discharge Inst-Women's Service ---
Discharge Inst-Women's Serv Depart Medication/Instructions New, Converted or Re-Newed RX: RX on Chart Problems Reviewed?: Yes Consults/Follow Up Additional Follow Up: Yes Activity Activity: Activity as Tolerated Driving Instructions: No Driving for 1 Week NO SMOKING: NO SMOKING Nothing Inside Vagina: No Douching, No Tetherow, No Tampons Diet Discharge Diet: No Restrictions Symptoms to Report to : Bleeding Excessive, Pain Increased, Fever Over 101 Degrees F, Vaginal Bleeding Increase, Questions/Concerns For Any Problems or Questions: Contact Your Physician ROSANGELA HEATON DO Feb 18, 2021 08:02
[2021-02-18] MEDS ORDERED: DCS100C PO (08:08)
[2021-02-18] MEDS ORDERED: BENZ78AE5 TP (08:08)
[2021-02-18] MEDS ORDERED: ACHD5005 PO (08:08)
[2021-02-18] MEDS ORDERED: DIBU30OI TOP (08:08)
[2021-02-18] MEDS ORDERED: IBUP-844 PO (08:08)
[2021-02-18] MEDS ORDERED: FERR325T24 PO (08:08)
--- NOTE | 2021-02-18 08:10 | Postpartum Progress Note ---
Note Note Day # 1 Subjective: Patient is without complaints. Ambulating, voiding. Tolerating a regular diet without nausea or vomiting. Normal lochia. Pain is well controlled with oral pain medications. Objective: Physical Exam: General - Alert and oriented, no apparent distress Abdomen - Soft, appropriately tender to palpation, non-distended, fundus firm at umbilicus Extremities - no edema, negative Martha's bilaterally Assessment: PPD 1 NVD Plan: Routine care. Encourage breast feeding. Encourage ambulation. Ferrous sulfate supplementation. Plan for discharge today Vitals - Labs Vital Signs - I&O Vital Signs Date Time Temp Pulse Resp B/P (MAP) Pulse Ox O2 Delivery O2 Flow Rate FiO2 02/18/21 03:35 36.6 81 18 101/60 (74) 98 Room Air 02/17/21 23:53 36.3 75 18 113/61 (78) 98 Room Air 02/17/21 20:35 36.4 74 18 113/58 (76) 99 Room Air 02/17/21 15:00 36.8 76 18 106/56 (73) 97 Room Air 02/17/21 10:50 82 105/59 (74) 02/17/21 10:45 76 109/58 (75) 02/17/21 10:30 75 114/62 (79) 02/17/21 10:15 36.6 82 121/71 (88) 02/17/21 10:00 68 118/67 (84) 02/17/21 09:45 74 106/57 (73) 02/17/21 09:30 82 116/59 (78) 02/17/21 09:15 101 109/59 (76) 02/17/21 09:00 90 114/61 (78) 02/17/21 08:45 84 143/67 (92) 02/17/21 08:30 75 117/67 (84) 02/17/21 08:15 82 112/69 (83) I & O 02/18/21 07:00 Intake Total 1300 ml Balance 1300 ml Labs Laboratory Tests 02/18/21 04:58: White Blood Count 9.0, Red Blood Count 3.94, Hemoglobin 11.5, Hematocrit 35, Mean Corpuscular Volume 88, Mean Corpuscular Hemoglobin 29, Mean Corpuscular Hemoglobin Concent 33, Red Cell Distribution Width 13.3, Platelet Count 168, Mean Platelet Volume 11.8, Immature Granulocyte % (Auto) 0, Neutrophils (%) (Auto) 72, Lymphocytes (%) (Auto) 20, Monocytes (%) (Auto) 7, Eosinophils (%) (Auto) 1, Basophils (%) (Auto) 0, Neutrophils # (Auto) 6.5, Lymphocytes # (Auto) 1.8, Monocytes # (Auto) 0.6, Eosinophils # (Auto) 0.1, Basophils # (Auto) 0.0, Immature Granulocyte # (Auto) 0.0 ROSANGELA HEATON DO Feb 18, 2021 08:10
[2021-02-18 10:00] VITALS: BP 124/72
[2021-02-18] MEDS: DOCUSATE SODIUM 100 MG (COLACE) CAP PO SCH (10:10)
[2021-02-18] MEDS ORDERED: ACETAMINOPHEN 500 MG TAB (TYLENOL) ONE (10:56)
--- NOTE | 2021-02-18 11:05 | Anesthesia-Regional Post-Op ---
Regional Patient Condition Mental Status: Alert, Oriented x3 Circulation: Same as Pre-Op Headache: Absent Sensation: Full Recovery Motor Block: Absent Post Op Complications Complications None Follow Up Care/Instructions Patient Instructions None needed. Anesthesia/Patient Condition Patient is doing well, no complaints, stable vital signs, no apparent adverse anesthesia problems. No complications reported per nursing. ESTER MILLARD CRNA Feb 18, 2021 11:05
[2021-02-19] MEDS ORDERED: ACETAMINOPHEN 500 MG TAB (TYLENOL) PO ONE (10:30)
== END 2021-02-18 11:45 | disposition home or self-care (01) | DRG 807 ==
LOC: WSo 06:00 → LDRP 06:04 → WSo 06:28 → LDRP 06:29
PROVIDERS: ADMIT Obstetrics & Gynecology; ATTEND Obstetrics & Gynecology
PROC: 10E0XZZ Delivery of Products of Conception, External Approach (ICD-10-PCS; principal; 2021-02-17)
PROC: 0KQM0ZZ Repair Perineum Muscle, Open Approach (ICD-10-PCS; 2021-02-17)
DX: O70.1 Second degree perineal laceration during delivery (principal); Z37.0 Single live birth; Z3A.38 38 weeks gestation of pregnancy; Z88.1 Allergy status to other antibiotic agents
CPT/HCPCS: 36415; 85025; 86850; 86900; 86901; 91301

== ENCOUNTER 2021-03-02 08:34 | Emergency (ER) | payer OTHER ==
[~2021-03-02] VITALS: Ht 170.1 cm; Wt 78.4 kg
[~2021-03-02 08:34] MED LIST changes: +ACHD5005 PO; +BENZ78AE5 TP; +DCS100C PO; +DIBU30OI TOP; +FERR325T24 PO; +IBUP-844 PO
[2021-03-02 09:07] LABS: BILIRUBIN,URINE NEGATIVE (NEGATIVE); CLARITY,URINE CLEAR; COLOR,URINE YELLOW; GLUCOSE, URINE (UA) NEGATIVE (NEGATIVE); KETONES,URINE NEGATIVE (NEGATIVE); LEUKOCYTE ESTERASE ,URINE 2+ (NEGATIVE); NITRITE,URINE NEGATIVE (NEGATIVE); PH,URINE 6.5 (5-9); PROTEIN,URINE NEGATIVE (NEGATIVE)
[2021-03-02 09:45] LABS: BACTERIA,URINE FEW /HPF
[2021-03-02 10:09] LABS: BASOPHILS % (AUTO) 0 % (0-10); EOSINOPHILS # (AUTO) 0.1 10^3/uL (0.0-0.3); EOSINOPHILS % (AUTO) 1 % (0-10); HEMATOCRIT 51 % (35-52); HEMOGLOBIN 16.6 g/dL (11.5-16.0); LYMPHOCYTES # (AUTO) 3.2 10^3/uL (1.0-4.0); LYMPHOCYTES % (AUTO) 50 % (12-44); MEAN CORPUSCULAR HEMOGLOBIN 29 pg (25-34); MEAN CORPUSCULAR HGB CONC 32 g/dL (32-36); MEAN CORPUSCULAR VOLUME 90 fL (80-99); MEAN PLATELET VOLUME 10.8 fL (9.0-12.2); MONOCYTES # (AUTO) 0.5 10^3/uL (0.0-1.0); MONOCYTES % (AUTO) 7 % (0-12); NEUTROPHILS # (AUTO) 2.7 10^3/uL (1.8-7.8); NEUTROPHILS % (AUTO) 42 % (42-75); PLATELET COUNT 369 10^3/uL (130-400); WHITE BLOOD COUNT 6.4 10^3/uL (4.3-11.0)
--- NOTE | 2021-03-02 10:14 | ED Abdominal Pain ---
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 Pt reports pain radiates to the back. Pt reports vaginal delivery without complications two weeks ago. Source of Information: Patient Exam Limitations: No Limitations History of Present Illness Date Seen by Provider: Mar 02, 2021 Time Seen by Provider: 09:02 Initial Comments This 30-year-old young lady presents to the emergency room about 2 weeks with left lower quadrant pain. She was breast-feeding when she suddenly experienced a sharp intense pain in the left lower quadrant. She had a brief episode of nausea, dizziness, and sweating at the onset. No symptoms dissipated quickly but the pain persisted. She rated the pain as 7 or 8 out of 10. She took ibuprofen (does not know dose) and pain gradually subsided. She denies any notable pain at this time. She is still experiencing some lochia but denies any other urologic or vaginal symptoms. No history of kidney stones. No noted hematuria. No constipation or diarrhea. Allergies and Home Medications Allergies Coded Allergies: amoxicillin (Unverified Allergy, Mild, 05/13/09) Home Medications Benzocaine/Menthol 78 Gm Aerosol, 56 EA TP UD PRN for PAIN- SEE INSTRUCTIONS Prescribed by: ROSANGELA HEATON on 02/18/21 08 Dibucaine 30 Gm Oint, 0 GM TOP UD PRN for PAIN- SEE INSTRUCTIONS Prescribed by: ROSANGELA HEATON on 02/18/21 0808 Docusate Sodium 100 Mg Capsule, 100 MG PO BID PRN for CONSTIPATION-1ST LINE Prescribed by: ROSANGELA HEATON on 02/18/21 0808 Ferrous Sulfate 325 Mg Tablet, 325 MG PO DAILY@0700 Prescribed by: ROSANGELA HEATON on 02/18/21 0808 Hydrocodone Bit/Acetaminophen 1 Tab Tab, 1 EA PO Q4H PRN for PAIN-MODERATE (5-7) Prescribed by: ROSANGELA HEATON on 02/18/21 0809 Ibuprofen 600 Mg Tablet, 600 MG PO Q6HR Prescribed by: ROSANGELA HEATON on 02/18/21 0808 Patient Home Medication List Home Medication List Reviewed: Yes Review of Systems Review of Systems Constitutional: no symptoms reported EENTM: No Symptoms Reported Respiratory: No Symptoms Reported Cardiovascular: No Symptoms Reported Gastrointestinal: See HPI Genitourinary: See HPI Musculoskeletal: no symptoms reported Skin: no symptoms reported Psychiatric/Neurological: No Symptoms Reported Endocrine: No Symptoms Reported Hematologic/Lymphatic: No Symptoms Reported Past Liisndp-Ynjlhn-Wanvrm Hx Patient Social History Tobacco Use?: No Substance use?: No Alcohol Use?: No Pt feels they are or have been: No Immunizations Up To Date PED Vaccines UTD: Yes First/Initial COVID19 Vaccinat: 02/17/21 COVID19 Vaccine Line Patroller: Trendabl Seasonal Allergies Seasonal Allergies: No Past Medical History Surgeries: Yes (cyst removal from hand ) Tonsillectomy Respiratory: No Cardiac: No Neurological: No Female Reproductive Disorders: Denies Sexually Transmitted Disease: No HIV/AIDS: No Genitourinary: No Gastrointestinal: No Musculoskeletal: No Endocrine: No Tonsilitis Cancer: No Psychosocial: No Integumentary: No Blood Disorders: No Adverse Reaction/Blood Tranf: No Family Medical History Patient reports no known family medical history. Physical Exam Vital Signs Vital Signs - First Documented 03/02/21 08:40 Temp 36.1 Pulse 73 Resp 18 B/P (MAP) 127/94 (105) Pulse Ox 99 O2 Delivery Room Air Capillary Refill : Less Than 3 Seconds Height/Weight/BMI Height: 5'6.00" Weight: 188lbs. 6.0oz. 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, no motor/sensory deficits, alert, normal mood/affect, oriented x 3 Skin: normal color, warm/dry Progress/Results/Core Measures Results/Orders Lab Results Laboratory Tests Test 03/02/21 08:45 03/02/21 08:50 Range/Units Urine Color YELLOW Urine Clarity CLEAR Urine pH 6.5 5-9 Urine Specific [place] 1.015 L 1.016-1.022 Urine Protein NEGATIVE NEGATIVE Urine Glucose (UA) NEGATIVE NEGATIVE Urine Ketones NEGATIVE NEGATIVE Urine Nitrite NEGATIVE NEGATIVE Urine Bilirubin NEGATIVE NEGATIVE Urine Urobilinogen 0.2 < = 1.0 MG/DL Urine Leukocyte Esterase 2+ H NEGATIVE Urine RBC (Auto) 3+ H NEGATIVE Urine RBC 10-25 H /HPF Urine WBC 5-10 H /HPF Urine Squamous Epithelial Cells 10-25 H /HPF Urine Crystals NONE /LPF Urine Bacteria FEW H /HPF Urine Casts NONE /LPF Urine Mucus SMALL H /LPF Urine Culture Indicated YES White Blood Count 6.4 4.3-11.0 10^3/uL Red Blood Count 5.73 H 3.80-5.11 10^6/uL Hemoglobin 16.6 H 11.5-16.0 g/dL Hematocrit 51 35-52 % Mean Corpuscular Volume 90 80-99 fL Mean Corpuscular Hemoglobin 29 25-34 pg Mean Corpuscular Hemoglobin Concent 32 32-36 g/dL Red Cell Distribution Width 13.1 10.0-14.5 % Platelet Count 369 130-400 10^3/uL Mean Platelet Volume 10.8 9.0-12.2 fL Immature Granulocyte % (Auto) 0 % Neutrophils (%) (Auto) 42 42-75 % Lymphocytes (%) (Auto) 50 H 12-44 % Monocytes (%) (Auto) 7 0-12 % Eosinophils (%) (Auto) 1 0-10 % Basophils (%) (Auto) 0 0-10 % Neutrophils # (Auto) 2.7 1.8-7.8 10^3/uL Lymphocytes # (Auto) 3.2 1.0-4.0 10^3/uL Monocytes # (Auto) 0.5 0.0-1.0 10^3/uL Eosinophils # (Auto) 0.1 0.0-0.3 10^3/uL Basophils # (Auto) 0.0 0.0-0.1 10^3/uL Immature Granulocyte # (Auto) 0.0 0.0-0.1 10^3/uL My Orders Orders - HAILEE JORDAN MD Ua Culture If Indicated (03/02/21 09:02) Urine Culture (03/02/21 08:45) Cbc With Automated Diff (03/02/21 10:03) Vital Signs/I&O 03/02/21 03/02/21 08:40 10:19 Temp 36.1 36.1 Pulse 73 69 Resp 18 18 B/P (MAP) 127/94 (105) 122/80 (105) Pulse Ox 99 99 O2 Delivery Room Air Room Air Blood Pressure Mean: 105 Progress Progress Note : Time: 10:11 Progress Note Pain completely resolved by the time of my exam. She was nontender. Urine showed some RBC, WBC, and bacteria but no nitrites. This likely represents contamination from lochia. She denies any urinary symptoms such as post void cramping, dysuria, frequency, or incomplete voiding. We will therefore not to treat with any antibiotics unless culture reveals something significant. Patient was given return precautions and dismissed home. Departure Impression Primary Impression: Left lower quadrant pain Disposition: HOME, SELF-CARE Condition: Improved Departure-Patient Inst. Decision time for Depature: 10:13 Referrals: NO,LOCAL PHYSICIAN (PCP/Family) Primary Care Physician Patient Instructions: Severe Abdominal Pain, Adult (DC) Add. Discharge Instructions: The cause of your symptoms is uncertain at this time but does not appear to be a dangerous problem based on your ER evaluation. However, if you have worsening symptoms such as escalating pain, fever, vomiting, recurrent lightheadedness or dizziness, etc. please return to the emergency room. Follow-up with your primary care provider and/or germ drier as necessary. Call with questions or concerns. All discharge instructions reviewed with patient and/or family. Voiced understanding. Copy Copies To 1: ROSANGELA HEATON JOSHUA T MD Mar 02, 2021 10:14
[2021-03-02 10:19] VITALS: BP 122/80
== END 2021-03-02 10:23 | disposition home or self-care (01) ==
LOC: EDUNIT# 08:34 → ER 08:35
DX: R10.32 Left lower quadrant pain (principal)
CPT/HCPCS: 36415; 81000; 85025; 87088